=== PATIENT | female | born 1990 | race Two or more races ===

== ENCOUNTER 2019-02-24 16:53 | Emergency (ER) | payer OTHER ==
[~2019-02-24] VITALS: Ht 175.3 cm; Wt 85.3 kg
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
[2019-02-24] MEDS ORDERED: MORPHINE SULFATE 4 MG/1 ML DISP.SYRIN ONE (17:23)
[2019-02-24] MEDS ORDERED: ONDANSETRON 4 MG/2 ML VIAL ONE (17:24)
[2019-02-24] MEDS ORDERED: MORPHINE SULFATE 4 MG/1 ML DISP.SYRIN IM ONE (17:30)
[2019-02-24] MEDS ORDERED: ONDANSETRON 4 MG/2 ML VIAL IM ONE (17:30)
[2019-02-24] MEDS ORDERED: TDAP DIPH,PERTUSS,TET VAC/PF 0.5 ML DISP.SYRIN IM ONE ×2 (17:43→18:00)
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
--- NOTE | 2019-02-24 18:21 | NUR ---
Call received from Kim from the [facility], speaking with HAMZAH.
[2019-02-24] MEDS ORDERED: SILVER SULFADIAZINE 1% CREAM 25 GM TUBE TP ONE (18:34)
[2019-02-24] MEDS ORDERED: SILVER SULFADIAZINE 1% CREAM 50 GM TP ONE (18:45)
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
[2019-02-24 18:58] VITALS: BP 123/77
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
== END 2019-02-24 18:59 | disposition home or self-care (01) ==
LOC: ER 16:56
DX: T24.212A Burn of second degree of left thigh, initial encounter (principal); T24.211A Burn of second degree of right thigh, initial encounter; T21.22XA Burn of second degree of abdominal wall, initial encounter; T24.101A Burn of first degree of unspecified site of right lower limb, except ankle and foot, initial encounter; X11.8XXA Contact with other hot tap-water, initial encounter; Y93.89 Activity, other specified; Y92.89 Other specified places as the place of occurrence of the external cause; Y99.8 Other external cause status
CPT/HCPCS: 16020; 90471; 90715; 96372 ×2; 99284; J2270; J2405; A4663